=== PATIENT | female | born 1935 | race Caucasian/White ===

== ENCOUNTER 2018-10-12 05:38 | Day surgery (SDC) | payer OTHER, MEDICARE ==
[~2018-10-12] VITALS: Ht 162.6 cm; Wt 81.6 kg
--- NOTE | ~2018-10-12 | O ---
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 PROCEDURE: Bilateral lower lid ectropion repair with right transconjunctival lower lid and cheek lift. SURGEON: Coy Perrin M.D. [employer]: None. ANESTHESIA: MAC. COMPLICATIONS: None. INDICATIONS FOR SURGERY: This pleasant 83-year-old woman has bilateral lower lid ectropion. 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 She presents today for bilateral lower lid ectropion repair combined with a right-sided transconjunctival lower lid and cheek lift. Informed consent was obtained to include but not limited to the potential risk for loss of vision, bleeding, infection, failure to improve the problem, the potential need for further surgery or treatment. DESCRIPTION OF PROCEDURE: The patient was taken to the operating room where 2% Xylocaine with epinephrine mixed with equal parts of 0.75% Marcaine with Wydase was administered transcutaneously and transconjunctivally to each lower lid and lateral canthus. In addition, on the right side, the cheek was anesthetized in addition to the infratemporal fossa in the medial canthus. The patient was subsequently prepped and draped in the usual sterile fashion. The left lateral canthus was then clamped with a Poole clamp. Sharp canthotomy and cantholysis were subsequently performed. A tarsal strip was then prepared laterally removing the lash bearing portion of the redundant lid margin [address] [address] OPERATIVE REPORT Name: ESEQUIEL LUONG Room #: DEP [facility]..#: [id number] Admission: 10/12/18 Attend Phys: Coy Perrin MD Discharge: 10/12/18 Date of : 35 Report #: [id number] and the redundant tarsal plate. Hemostasis was then re-achieved. Hemostasis was achieved with monopolar cautery. The tarsal strip was then secured to the internal portion of the lateral orbital tubercle with interrupted 5-0 Prolene sutures. The subcutaneous structures and the skin were then closed with interrupted 6-0 plain gut sutures. Attention was then turned to the right side. The right lateral canthus was then clamped with a Poole clamp. Sharp canthotomy and cantholysis were subsequently performed. A tarsal strip was then prepared laterally removing the lash bearing portion of the redundant lid margin and the redundant tarsal plate. Hemostasis was then re-achieved. Attention was then turned to the transconjunctival lower lid and cheek lift. An incision was then made below the inferior border of the tarsal plate across the width of the lid. The dissection was carried down utilizing both sharp and blunt techniques into the premalar tissues into the cheek. The lower lid and cheek tissues were then elevated and resuspended with interrupted mattress 5-0 double armed chromic sutures. The lower lid and cheek lift did well. Attention was then turned to completion of the ectropion repair. The tarsal strip was then secured to the internal portion of the lateral orbital tubercle with interrupted 5-0 Prolene sutures. This sharply reformed the lateral canthal angle. The subcutaneous structures and the skin were then closed with interrupted 6-0 plain gut sutures. Erythromycin ophthalmic ointment placed on the incisions, and the patient subsequently transported to the recovery area having tolerated the procedures well with no anesthetic or operative complications being noted. <ELECTRONICALLY SIGNED> By: Coy Perrin MD 10/16/18 0617 [id number] Coy Perrin MD /nt
[~2018-10-12 05:38] MED LIST: ASPIR 8181 MG PO; B COMPLEX1 EACH PO; CALCIUM500 M1 PO; IRON325 PO; LASIX 20 MG TAB20 MG PO; LISINOPRIL5 MG PO; MULTIPLE VITAM1 EAC4 PO; POTASSIUM20 PO; SYNTHROID125 MC1 PO; VITAMIN D1000 UNI1 PO; VITAMINC500 PO; XARELTO15 MG PO
== END 2018-10-12 13:50 | disposition home or self-care (01) ==
LOC: OR 05:38 → TBA 05:38 → OR 07:54
DX: H02.105 Unspecified ectropion of left lower eyelid (principal); H02.102 Unspecified ectropion of right lower eyelid; H02.532 Eyelid retraction right lower eyelid; H02.202 Unspecified lagophthalmos right lower eyelid; H18.9 Unspecified disorder of cornea; I10 Essential (primary) hypertension; J43.9 Emphysema, unspecified; E03.9 Hypothyroidism, unspecified; M19.90 Unspecified osteoarthritis, unspecified site; Z90.710 Acquired absence of both cervix and uterus; Z98.890 Other specified postprocedural states; Z88.8 Allergy status to other drugs, medicaments and biological substances; Z79.82 Long term (current) use of aspirin; Z79.899 Other long term (current) drug therapy
CPT/HCPCS: 50010; 50101; 50386; 50398; 51636; 56527; 56531; 62110; 62850; 70005